=== PATIENT | male | born 1965 | race Caucasian/White ===

== ENCOUNTER → 2022-07-26 | Outpatient (CLI) | payer OTHER, SELFPAY ==
[2022-07-26 14:44] LABS: Hemoglobin A1c 5.4 % (3.8-5.6)
== END | disposition home or self-care (01) ==
LOC: MFPLAB 13:29
PROVIDERS: PCP Family Medicine; Referring Provider Family Medicine; Visit Provider Family Medicine
DX: R73.01 Impaired fasting glucose (principal)
CPT/HCPCS: 83036; 84153; G0103

== ENCOUNTER → 2023-07-25 | Outpatient (CLI) | payer OTHER, SELFPAY | END | disposition home or self-care (01) | PROVIDERS: PCP Family Medicine; Visit Provider Family Medicine | DX: Z12.5 Encounter for screening for malignant neoplasm of prostate (principal) | CPT/HCPCS: 36415 ==

== ENCOUNTER → 2023-07-31 | Outpatient (CLI) | payer OTHER, SELFPAY ==
--- NOTE | 2023-07-31 14:33 | RAD_ITS ---
INDICATION: COUGH EXAMINATION/TECHNIQUE: X-RAY - XR Chest 2 Views COMPARISON: None. FINDINGS: LINES/DEVICES: None. LUNGS: No consolidation or evidence of an effusion. No evidence of edema or a pneumothorax. MEDIASTINUM AND CARDIOVASCULAR STRUCTURES: Cardiac silhouette is normal in size and contour. Mediastinum is unremarkable. BONES AND SOFT TISSUES: No acute abnormality. RAD/Chest PA and Lateral IMPRESSION: No evidence of cardiopulmonary disease. Electronically Signed: Sven Angel DO at 23:14 EDT ,
== END | disposition home or self-care (01) ==
LOC: MTRAD 14:32
PROVIDERS: PCP Family Medicine; Visit Provider Family Medicine
DX: R05.9 Cough, unspecified (principal)
CPT/HCPCS: 71046

== ENCOUNTER → 2023-12-04 | Outpatient (CLI) | payer OTHER, SELFPAY ==
[2023-12-04 17:49] LABS: Absolute Lymphocyte Count 1.76 X10^3/uL (0.83-4.51); Absolute Neutrophil Count 2.9 X10^3/uL (2.0-7.7); Basophil# 0.07 X10^3/uL; Basophil% 1.2 % (0-1); Eosinophil# 0.49 X10^3/uL; Eosinophils% 8.4 % (0-5); Hemoglobin 15.5 g/dL (13.0-16.5); Lymphocyte # 1.76 X10^3/ul (0.83-4.51); Mean Corpuscular Hgb 28.8 pg (27.0-32.0); Mean Corpuscular Volume 87.4 fL (80-94); Mean Platelet Vol. 9.3 fl (6.2-12.0); Monocyte# 0.61 X10^3/uL; Monocyte% 10.4 % (0-10); NRBC Flagged by Analyzer 0 % (0-5); Neutrophil # 2.92 X10^3/uL (2.7-7.7); Neutrophil % 49.8 % (47-70); Platelet Count 207 K/mm3 (150-450); RBC Distribution Width CV 13.2 % (11.6-14.6); RBC Distribution Width SD 42.4 fl (35.1-43.9); Red Blood Count 5.38 M/mm3 (4.6-6.2); White Blood Count 5.9 K/mm3 (4.4-11.0)
[2023-12-04 18:35] LABS: ALB/GLOB Ratio 1.1 RATIO (0.9-2.4); AST(SGOT) 19 U/L (15-37); Alanine Aminotransfer ALT/SGPT 28 U/L (16-61); Albumin, Serum 3.8 g/dL (3.2-5.0); Alkaline Phosphatase 63 U/L (45-117); Anion Gap 4 (5-15); BUN 23 mg/dL (7-18); BUN/Creat Ratio 23.3 RATIO (10-20); CRP 3.37 mg/L (0.0-3.0); Calcium,Total 9.1 mg/dL (8.5-10.1); Chloride 106 mmol/L (98-107); Creatinine, Serum 0.99 mg/dL (0.70-1.30); EST Glomerular Filtration Rate 82 mL/min (>60); Est Glom Filt Rate - Afr Amer 100 mL/min (>60); Globulin 3.4 g/dL (2.2-4.2); Glucose 93 mg/dL (74-106); Lipase 37 U/L (13-75); Protein, Total 7.2 g/dL (6.4-8.2); Sodium Level 138 mmol/L (136-145)
== END | disposition home or self-care (01) ==
LOC: MFPLAB 16:27
PROVIDERS: PCP Family Medicine; Visit Provider Family Medicine
DX: K21.9 Gastro-esophageal reflux disease without esophagitis (principal)
CPT/HCPCS: 36415; 80053; 83690; 85025; 86140

== ENCOUNTER → 2023-12-05 | Outpatient (CLI) | payer OTHER, SELFPAY ==
[2023-12-07 15:07] LABS: H. PYLORI STOOL AG Negative (Negative)
== END | disposition home or self-care (01) ==
PROVIDERS: PCP Family Medicine; Referring Provider Family Medicine; Visit Provider Family Medicine
DX: K21.9 Gastro-esophageal reflux disease without esophagitis (principal)
CPT/HCPCS: 87338

== ENCOUNTER → 2024-01-07 | Outpatient (CLI) | payer OTHER, SELFPAY ==
--- NOTE | 2024-01-07 16:36 | CT_ITS ---
EXAM: CT CHEST WITH INTRAVENOUS CONTRAST CLINICAL INDICATION: atypical chest pain: look for swelling TECHNIQUE: Helically acquired images were obtained of the chest with intravenous contrast. This CT exam was performed using one or more of the following dose reduction techniques: automated exposure control, adjustment of the mA and/or kV according to patient size, and/or use of iterative reconstruction technique. CONTRAST: IV 100mL Isovue-300 COMPARISON: No relevant prior studies available. FINDINGS: LUNGS AND PLEURAL SPACES: Unremarkable. No mass. No consolidation or edema. No pleural effusion or thickening. No pneumothorax. HEART: Unremarkable. Heart size is normal. No pericardial effusion. MEDIASTINUM: Unremarkable. No mediastinal or hilar adenopathy. Esophagus is unremarkable. No hiatal hernia. THYROID: Unremarkable. No thyroid lesions. BONES/JOINTS: Unremarkable. No suspicious lytic or blastic abnormality. VASCULATURE: Unremarkable. Thoracic aorta is non-dilated. No thoracic aortic dissection. No obvious central pulmonary embolism although this study was not performed with the pulmonary embolism protocol. CT/Chest WITH Contrast IMPRESSION: Negative CT chest with intravenous contrast. Electronically Signed: Agustín Bowser MD at 17:40 EST ,
== END | disposition home or self-care (01) ==
LOC: CT 16:34
PROVIDERS: PCP Family Medicine; Referring Provider Family Medicine; Visit Provider Family Medicine
DX: R07.89 Other chest pain (principal)
CPT/HCPCS: 71260; Q9967

== ENCOUNTER 2024-02-17 16:18 | Outpatient (CLI) | payer OTHER, SELFPAY ==
[2024-02-17] VITALS (7 sets, daily range): BP systolic 101–142; BP diastolic 71–85; PULSE 67–71; RESP 16–66; TEMP 36.2–36.6; O2SAT 96–100; BMI 28.7
[2024-02-17] MEDS: Lactated Ringers 1,000 ML 15 ML IV (14:48)
--- NOTE | 2024-02-17 15:20 | PCM.HP.STD ---
[facility] - General General Date of Admission: 02/17/24 Date of Service: 02/17/24 Chief Complaint: Abdominal pain HPI Narrative GIANNI HOLLIDAY, is a 58 M who presents today for evaluation abdominal pain. He has been having trouble with midepigastric pain, radiating in a bandlike region around his back. He denies any chest pain or shortness of breath. He was placed on a PPI for possible atypical gastroesophageal reflux disease. That did not help. He comes in today for endoscopy. [facility] Medical History (Updated 02/17/24 @ 15:[address] 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 (omeprazole)) 20 mg PO DAILY 02/16/24 [History Last Taken 02/17/24 06:00] Allergy/AdvReac Type Severity Reaction Status Date / Time No Known Allergies Allergy Verified 02/17/24 14:38 Surgical History (Updated 02/16/24 @ 09:40 by Brianna Maxwell) Hx of colonoscopy Hx of left cataract extraction Hx of right cataract extraction Hx of vasectomy Social History Smoking Status: Never smoker alcohol intake: current alcohol intake frequency: 0-2 drinks per day Alcohol type: wine ROS Review of Systems ROS Unobtainable: other Constitutional Constitutional: Denies fatigue, fever(s), poor appetite, weight gain or weight loss ENT HEENT: Denies mouth lesions Cardiovascular Cardiovascular: Denies abdominal bloating, abdominal edema or abdominal pain Respiratory/Chest Respiratory/Chest: Denies change in mental status, change in phlegm color, chest congestion or chest tightness Gastrointestinal Gastrointestinal: Denies belching, bloating, change in bowel habits, change in stool character, chewing difficulty, coffee ground emesis, constipation, cramping, diarrhea, dyspepsia, dysphagia, early satiety, excessive flatus, fecal incontinence, heartburn, hematemesis, hematochezia, hemorrhoids, loose stools, melena, nausea, odynophagia, rectal bleeding, tenesmus, vomiting or weight changes Genitourinary Genitourinary: Denies abdominal discomfort, burning urination or itching Musculoskeletal Musculoskeletal: Reports as per HPI; Denies muscle weakness or myalgias Integumentary Integumentary: Denies jaundice Neurologic Neurologic: Denies lack of coordination or weakness Psychiatric Psychiatric: Denies confusion, depression, memory loss, mood swings, paranoia or suicidal ideation Endocrine Endocrinology: Denies systems reviewed and no addt'l complaints, except as documented Hematologic/Lymphatic Hematologic/Lymphatic: Denies anemia, easy bleeding, easy bruising or lymphadenopathy Allergic/Immunologic Allergic/Immunologic: Denies systems reviewed and no addt'l complaints, except as documented Vital Signs Vital Signs Vital Signs: 02/17/24 14:39 02/17/24 14:39 Temperature 98 F Temperature Source Temporal Pulse Rate 68 Respiratory Rate 16 Respiratory Pattern Normal Blood Pressure 142/85 H Blood Pressure Mean 104 Blood Pressure Source Monitor Blood Pressure Position Semi-Fowlers Blood Pressure Location Right Arm Pulse Ox 100 Oxygen Delivery Method Room Air Weight Weight: 212 lb Body Mass Index (BMI) 28.7 Physical Exam Const alert General Appearance: cooperative Orientation / Consciousness: oriented to person HEENT hearing grossly normal bilaterally Head and Scalp: normal to inspection Face and Sinus: face symmetric Nose: external nose normal Mouth: oral and palatal mucosa normal Eyes conjunctivae normal General Eye: normal appearance of both eyes Neck full ROM General: normal visual inspection Lymph Lymphatic: no lymphadenopathy noted Chest inspection of chest normal and palpation of chest normal Chest: symmetrical chest wall rise Resp normal respiratory effort Effort and Inspection: able to speak in complete sentences Cardio regular rate GI non-distended Percussion: normal to percussion Rectal Exam: deferred Neuro Speech: speech normal Gait (Neuro): normal gait Assessment & Plan Assessment/Plan (1) GERD (gastroesophageal reflux disease): (2) Abdominal pain: PLAN: Plan 58-year-old gentleman with no specific past medical history and and a family history of abdominal malignancy in his father and possible peptic ulcer disease resulting in surgery in his mother. He comes in with worsening abdominal pain and intermittent reflux disease refractory to medical therapy. We will undergo evaluation of his upper GI tract. He was explained alternatives, risk, benefits include not withstanding bleeding, infection, sepsis, perforation, need for emergent surgery and . He will have an ASA of 2.
--- NOTE | 2024-02-17 15:30 | IMM_PTH ---
PATIENT: GIANNI HOLLIDAY LOC: EN U#:[id number] AGE/SX: 58/M ROOM: RE02/17/[address]: Dr. Alireza Nation DO : 1965 BED: DIS: 02/17/2024 SPEC #: [id number] RECD: 02/18/24 13:09 STATUS: HUSAM REWhitney #: [id number] ANA: 02/17/24 15:[address]: Alireza Nation DEPT: IMMUNOHISTOCHEMISTRY RECD BY: Kamaljit Aviles ENTERED: 02/18/24 13:10 SP TYPE: IMMUNO OTHR DR: Dr. Swapnil Leon MD Tissues: A - Stomach, NOS Procedures: H Pylori (initial) PHYSICIAN & INSTITUTION [place] [id number] SPECIMEN INFORMATION: Tissue Source: Gastric body Clinical Info: GERD, Abdominal pain Specimen Number: [id number] CPT code: 08298 METHODOLOGY: Deparaffinized sections of prefer/formalin-fixed tissue or PAP/DQ stained slides are incubated with monoclonal/polyclonal antibodies/oligonucleotide probes. Localization is made via biotin free immunoperoxidase method. Appropriate controls are performed and reacted as expected. Results on target cell population are indicated in the following table: RESULTS: ANTIBODY / CLONE RESULT Block A H Pylori (polyclonal) negative These tests were developed and their performance characteristics determined by [facility]. They may not have been cleared or approved by the U.S. Food and Drug Administration. The FDA has determined that such clearance or approval is not necessary. The above immunohistochemical/dualISH markers are ordered and reviewed by the Pathologist. INTERPRETATION: A. Gastric body, biopsy: Negative for Helicobacter pylori organisms. DELMER/ 02/19/24
--- NOTE | 2024-02-17 15:30 | EGD_PTH ---
PATIENT: GIANNI HOLLIDAY LOC: EN U#:[id number] AGE/SX: 58/M ROOM: RE02/17/[address]: Dr. Alireza Nation DO : 1965 BED: DIS: 02/17/2024 SPEC #: [id number] RECD: 02/18/24 13:40 STATUS: HUSAM REWhitney #: [id number] ANA: 02/17/24 15:[address]: Alireza Nation DEPT: SURGICAL PATHOLOGY RECD BY: Kamaljit Aviles ENTERED: 02/18/24 13:40 SP TYPE: EGD BIOPSY AD DR: Dr. Swapnil Leon MD Tissues: A - Stomach, NOS B - Esophagus, NOS Procedures: Special Stain Group II Surgery Specimen Level IV Alcian Blue/PAS (control) HEADER OPERATION: EGD with biopsy PRE-OP DIAGNOSIS: GERD, Abdominal pain TISSUE SUBMITTED: A- Gastric body biopsy, B- Distal esophagus biopsy MICROSCOPIC DIAGNOSIS A. Gastric body, biopsy: Mild gastritis. See microscopic description and comment. B. Distal esophagus, biopsy: Fragments of gastroesophageal mucosa with moderate chronic inflammation. Intestinal metaplasia (goblet cell metaplasia) not identified. See comment. DELMER/ 02/19/24 COMMENT A. The results of immunohistochemistry for Helicobacter pylori will be reported separately ([id number]). B. Alcian blue/PAS stain with matched control is used in the evaluation of the specimen. MICROSCOPIC DESCRIPTION Slides are reviewed. A. The specimen shows fragments of gastric mucosa with chronic inflammatory cell infiltrates in the lamina propria consisting of lymphocytes and plasma cells, consistent with mild chronic gastritis. GROSS DESCRIPTION A. Received in fixative is one container labeled with the patient's name and designated Gastric body biopsy. The specimen consists of multiple irregular fragments of light cerna soft tissue that in aggregate measure 1.0 x 0.3 x 0.1 cm. The specimen is totally submitted in one cassette. B. Received in fixative is one container labeled with the patient's name and designated Distal esophagus. The specimen consists of multiple irregular fragments of light cerna soft tissue that in aggregate measure 1.0 x 0.3 x 0.1 cm. The specimen is totally submitted in one cassette. AM/mr 02/18/24 TC:3 CPT:99804d8, 30249
--- NOTE | 2024-02-17 15:58 | OP.EGD_ITS ---
Patient Name: Bradley Ruiz Procedure Date: 02/17/2024 3:15 PM Date of : 1965 Age: 58 Procedure: Upper GI endoscopy Indications: Epigastric abdominal pain, Functional Dyspepsia, Failure to respond to medical treatment Providers: Alireza Nation DO Referring MD: Alireza Nation DO Medicines: Monitored Anesthesia Care Patient Profile: This is a 58 year old male. Refer to note in patient chart for documentation of history and physical. Patient has symptoms of acute epigastric abdominal pain and acute dyspepsia. Complications: No immediate complications. Procedure: Pre-Anesthesia Assessment: - Prior to the procedure, a History and Physical was performed, and patient medications and allergies were reviewed. The patient is competent. The risks and benefits of the procedure and the sedation options and risks were discussed with the patient. All questions were answered and informed consent was obtained. Patient identification and proposed procedure were verified by the physician in the pre-procedure area. Mental Status Examination: alert and oriented. Airway Examination: normal oropharyngeal airway and neck mobility. CV Examination: normal. Prophylactic Antibiotics: The patient does not require prophylactic antibiotics. Prior Anticoagulants: The patient has taken no anticoagulant or antiplatelet agents. ASA Grade Assessment: II - A patient with mild systemic disease. After reviewing the risks and benefits, the patient was deemed in satisfactory condition to undergo the procedure. The anesthesia plan was to use monitored anesthesia care (MAC). Immediately prior to administration of medications, the patient was re-assessed for adequacy to receive sedatives. The heart rate, respiratory rate, oxygen saturations, blood pressure, adequacy of pulmonary ventilation, and response to care were monitored throughout the procedure. The physical status of the patient was re-assessed after the procedure. After obtaining informed consent, the endoscope was passed under direct vision. Throughout the procedure, the patient's blood pressure, pulse, and oxygen saturations were monitored continuously. The gastroscope was introduced through the mouth, and advanced to the second part of duodenum. The upper GI endoscopy was accomplished without difficulty. The patient tolerated the procedure well. Scope In: 3:27:29 PM Scope Out: 3:32:44 PM Total Procedure Duration Time 0 hours 5 minutes 15 seconds Findings: The Z-line was irregular and was found 39 cm from the incisors. Biopsies were taken with a cold forceps for histology. Verification of patient identification for the specimen was done. Estimated blood loss was minimal. Patchy mildly erythematous mucosa without bleeding was found in the gastric body. Biopsies were taken with a cold forceps for histology. Verification of patient identification for the specimen was done. Estimated blood loss was minimal. Biopsies were taken with a cold forceps for Helicobacter pylori testing. Verification of patient identification for the specimen was done. Estimated blood loss was minimal. The first portion of the duodenum was normal. Biopsies were taken with a cold forceps for histology. Verification of patient identification for the specimen was done. Estimated blood loss was minimal. Impression: - Z-line irregular, 39 cm from the incisors. Biopsied. - Erythematous mucosa in the gastric body. Biopsied. - Normal first portion of the duodenum. Biopsied. Recommendation: - Discharge patient to home. - Resume previous diet. - Continue present medications. - Await pathology results. Procedure Code(s): --- Professional --- 53625, Esophagogastroduodenoscopy, flexible, transoral; with biopsy, single or multiple CPT copyright 2021 [employer]. All rights reserved. The codes documented in this report are preliminary and upon finding fastener review may be revised to meet current compliance requirements. Alireza Nation DO 02/17/2024 3:58:24 PM This report has been signed electronically. Number of Addenda: 0 Note Initiated On: 02/17/2024 3:15 PM
--- NOTE | 2024-02-17 15:59 | OP.CCLET_ITS ---
02/17/2024 Swapnil Leon [address] [place] [address] Re : Upper GI endoscopy procedure for Bradley Ruiz Dear Dr. Leon This procedure was performed on Saturday, February 17, 2024. My impressions and recommendations are as follows: Impressions : - Z-line irregular, 39 cm from the incisors. Biopsied. - Erythematous mucosa in the gastric body. Biopsied. - Normal first portion of the duodenum. Biopsied. Recommendations : - Discharge patient to home. - Resume previous diet. - Continue present medications. - Await pathology results. My findings are described in the full procedure note, which is enclosed. If I can be of further assistance, please feel free to contact me at . Sincerely, Alireza Nation, 02/17/2024 3:58:24 PM This report has been signed electronically.
== END 2024-02-17 16:20 | disposition home or self-care (01) ==
LOC: EN 16:19 → AC 16:19 → EN 16:19
PROVIDERS: PCP Family Medicine; Referring Provider Family Medicine; Visit Provider Internal Medicine Gastroenterology
PROC: 0DJ08ZZ Inspection of Upper Intestinal Tract, Via Natural or Artificial Opening Endoscopic (ICD-10-PCS; CPT 43235; principal; 2024-02-17 15:25)
DX: R10.13 Epigastric pain (principal); Z98.41 Cataract extraction status, right eye; Z98.42 Cataract extraction status, left eye; Z98.52 Vasectomy status; K21.9 Gastro-esophageal reflux disease without esophagitis; Z80.0 Family history of malignant neoplasm of digestive organs; K22.89 Other specified disease of esophagus; K31.89 Other diseases of stomach and duodenum; K29.70 Gastritis, unspecified, without bleeding
CPT/HCPCS: 43239; 88305; 88313; 88342; J7120; J2405

== ENCOUNTER 2024-02-18 06:58 | Outpatient (CLI) | payer OTHER, SELFPAY ==
[2024-02-18 07:54] LABS: Erythrocyte Sedimentation Rate 6 mm/hr (0-20)
[2024-02-18 07:57] LABS: Absolute Lymphocyte Count 1.59 X10^3/uL (0.83-4.51); Absolute Neutrophil Count 2.9 X10^3/uL (2.0-7.7); Basophil# 0.06 X10^3/uL; Basophil% 1.1 % (0-1); Eosinophil# 0.34 X10^3/uL; Eosinophils% 6.3 % (0-5); Hematocrit 48.2 % (40-54); Hemoglobin 15.6 g/dL (13.0-16.5); Lymphocyte # 1.59 X10^3/ul (0.83-4.51); Lymphocyte % 29.5 % (19-41); Mean Corp Hgb Conc 32.4 g/dL (32-36); Mean Corpuscular Hgb 28.5 pg (27.0-32.0); Mean Corpuscular Volume 88.1 fL (80-94); Mean Platelet Vol. 9.2 fl (6.2-12.0); Monocyte% 9.3 % (0-10); NRBC Flagged by Analyzer 0 % (0-5); Neutrophil # 2.88 X10^3/uL (2.7-7.7); Neutrophil % 53.4 % (47-70); Platelet Count 230 K/mm3 (150-450); RBC Distribution Width CV 13.1 % (11.6-14.6); RBC Distribution Width SD 42.4 fl (35.1-43.9); Red Blood Count 5.47 M/mm3 (4.6-6.2); White Blood Count 5.4 K/mm3 (4.4-11.0)
[2024-02-18 08:13] LABS: ALB/GLOB Ratio 1.1 RATIO (0.9-2.4); AST(SGOT) 15 U/L (15-37); Alanine Aminotransfer ALT/SGPT 23 U/L (16-61); Albumin, Serum 3.6 g/dL (3.2-5.0); Alkaline Phosphatase 65 U/L (45-117); Amylase 56 U/L (25-115); Anion Gap 4 (5-15); BUN 15 mg/dL (7-18); BUN/Creat Ratio 14.2 RATIO (10-20); CPK Total, Creatine Kinase 86 U/L (39-308); CRP < 2.90 mg/L (0.0-3.0); Calcium,Total 8.9 mg/dL (8.5-10.1); Chloride 110 mmol/L (98-107); Creatinine, Serum 1.06 mg/dL (0.70-1.30); EST Glomerular Filtration Rate 76 mL/min (>60); Est Glom Filt Rate - Afr Amer 92 mL/min (>60); Globulin 3.4 g/dL (2.2-4.2); Glucose 120 mg/dL (74-106); LDH 178 U/L (87-241); Lipase 42 U/L (13-75); Potassium 4.2 mmol/L (3.5-5.1); Sodium Level 140 mmol/L (136-145)
[2024-02-20 15:08] LABS: Aldolase 4.7 U/L (3.3-10.3); Alpha-1-Globulins 0.2 g/dL (0.0-0.4); Alpha-2-Globulins 0.6 g/dL (0.4-1.0); Carbohydrate AG 19-9 5 U/mL (0-35); Carcinoembryonic Antigen 1.4 ng/mL (0.0-4.7); Deamidated Gliadin IgA 7 units (0-19); Deamidated Gliadin IgG 3 units (0-19); Endomysial Antibody IgA Negative (Negative); Gamma Globulin 0.8 g/dL (0.4-1.8); Gastrin, Serum 13 pg/mL (0-115); Immunoglobulin A 288 mg/dL (90-386); Immunoglobulin G 964 mg/dL (603-1613); Immunoglobulin M 83 mg/dL (20-172); PROEL- TOTAL PROTEIN 6.4 g/dL (6.0-8.5); t-Transglutaminase IgA <2 U/mL (0-3)
== END 2024-02-18 23:59 | disposition home or self-care (01) ==
PROVIDERS: PCP Family Medicine; Visit Provider Internal Medicine Gastroenterology
DX: R10.9 Unspecified abdominal pain (principal); K21.9 Gastro-esophageal reflux disease without esophagitis
CPT/HCPCS: 36415; 80053; 82085; 82150; 82378; 82550; 82784; 82941; 83516; 83615; 83690; 84165; 85025; 85652; 86140; 86255; 86301; 86334

== ENCOUNTER → 2024-03-10 | Outpatient (CLI) | payer OTHER, SELFPAY ==
--- NOTE | 2024-03-10 07:14 | US_ITS ---
STUDY: ABDOMINAL ULTRASOUND REASON FOR EXAM: Male, 58 years old. Abdominal pain TECHNIQUE: Transabdominal ultrasound was performed with real-time and static morales scale imaging. TECHNICAL QUALITY: Adequate. COMPARISON: None. FINDINGS: Liver: The liver measures 15.9 cm. There is normal echogenicity of the liver. The bile ducts are within normal limits. There is hepatic color flow. The direction of portal flow is hepatopetal. There is no demonstrated mass lesion. Gallbladder: Normal distended gallbladder. The gallbladder wall measures 1.9 mm. There is a negative sonographic Laboy''s sign. There is no pericholecystic fluid. There are no gallstones. Common Bile Duct (C.B.D.): The common bile duct measures 4.1 mm. Pancreas: Limited visualization of pancreas due to overlying bowel gas although no obvious mass lesion is seen. Spleen: Normal size of the spleen. The spleen measures 12.1 cm x 4.8 cm x 5.1 cm. Right Kidney: Normal size of the right kidney. The right kidney measures 10.7 cm x 5.9 cm x 5.6 cm. Normal renal cortex. The right cortex measures 1.5 cm. There is no demonstrated renal mass or cyst. There is no right hydronephrosis. Left Kidney: Normal size of the left kidney. The left kidney measures 12.4 cm x 5.5 cm x 6.6 cm. Normal renal cortex. The left cortex measures 1.5 cm. There is no demonstrated renal mass or cyst. There is no left hydronephrosis. Aorta: Unremarkable I.V.C.: The IVC is patent. There is no ascites. US/Abdomen Complete IMPRESSION: Limited evaluation of the pancreas. The remainder of the examination is unremarkable. Electronically Signed: Eder Smith MD at 14:39 EDT ,
== END | disposition home or self-care (01) ==
PROVIDERS: PCP Family Medicine; Referring Provider Internal Medicine Gastroenterology; Visit Provider Internal Medicine Gastroenterology
DX: R10.9 Unspecified abdominal pain (principal)
CPT/HCPCS: 76700

== ENCOUNTER → 2024-06-29 | Outpatient (CLI) | payer OTHER, SELFPAY ==
[2024-06-29 11:36] LABS: PSA,Total - Annual Screen 0.27 ng/mL (0.00-4.00)
== END | disposition home or self-care (01) ==
LOC: MFPLAB 10:46
PROVIDERS: PCP Family Medicine; Visit Provider Family Medicine
DX: Z12.5 Encounter for screening for malignant neoplasm of prostate (principal)
CPT/HCPCS: 84153; G0103

== ENCOUNTER → 2024-08-11 | Outpatient (CLI) | payer OTHER, SELFPAY ==
--- NOTE | 2024-08-11 13:00 | CT_ITS ---
STUDY: CT CHEST WITHOUT CONTRAST REASON FOR EXAM: Male, 58 years old. CP OVER READ ONLY RADIATION DOSAGE (If Supplied By Facility): CTDIvol = ( 12.19 ) mGy, DLP = ( 219.42 ) mGycm TECHNIQUE: Transaxial imaging was performed without the administration of intravenous contrast material. Individualized dose optimization techniques were used for this CT. COMPARISON: Comparison is made with prior CT scan of the chest dated December 30, 2023. FINDINGS: CHEST The lungs are normal. There is no demonstrated pleural abnormality. There are calcifications of the coronary arteries. Calcific plaques seen in the LAD, circumflex and origin of the right coronary artery. Normal mediastinum. Normal hilar regions. Normal unenhanced pulmonary arteries. There is atherosclerotic calcification of the aortic arch. Normal osseous structures. There is no demonstrated abnormality of the visualized upper abdomen. CT/Limited Chest CT Cardiac Only IMPRESSION: Coronary artery calcification as described. Electronically Signed: Eder Smith MD at 13:49 EDT ,
--- NOTE | 2024-08-11 16:59 | CA.SCORE ---
Calcium Scoring Date of Study:: 08/11/24 Indications Indications: Family History /Chest pain Coronary Calcium Scoring: High-resolution Computed Tomographic imaging of the chest was performed on [ 08/11/24], with particular attention paid to the coronary arteries. Images from the examination were analyzed for the presence and extent of coronary artery calcification , using coronary calcium quantification software. The patient tolerated the procedure well and there were no complications. The results of the coronary calcification analysis are provided below. Findings Coronary Artery Left Main (LM): 91 Left Anterior Descending (LAD): 128 Left Circumflex (LCX): 189 Right Coronary Artery (RCA): 432 Total Agatston Score: 840 Percentile Ranking: Greater than 90% Calcium Scoring Interpretation: Different methods to categorize the overall amount of coronary plaque. Overall amount CAC SIS Visual of coronary plaque P1 Mild -100 <2 1-2 vessels with mild amount of plaque P2 Moderate 101-300 3-4 1-2 vessels with moderate amount, 3 vessels with mild amount of plaque P3 Severe 301-999 5-7 3 vessels with moderate amount, 1 vessel with severe amount of plaque P4 Extensive >1000 >8 2-3 vessels with severe amount of plaque Calcium Score: Severe: 3 vessels w/moderate amount, 1 vessel w/severe amt of plaque Conclusion: 3 vessels with moderate amount of plaque. 1 vessel with severe plaque.
== END | disposition home or self-care (01) ==
PROVIDERS: PCP Family Medicine; Referring Provider Family Medicine; Visit Provider Family Medicine
DX: R07.89 Other chest pain (principal); Z71.89 Other specified counseling
CPT/HCPCS: 75571; 76380

== ENCOUNTER → 2024-08-20 | Outpatient (CLI) | payer OTHER, SELFPAY ==
--- NOTE | 2024-08-20 08:21 | ECHOD_ITS ---
Version 2 Reason For Study: ASHD Procedure This was a 2D Doppler, Color Flow transthoracic echocardiogram. Exam performed in department. Left Ventricle Normal LV size. Left ventricular systolic function is normal. The left ventricular ejection fraction is 60 %. Stage 1 diastolic dysfunction. No regional wall motion abnormalities noted. Right Ventricle Normal RV size. Normal systolic function. Atria Normal left atrium. Normal right atrium. Mitral Valve Normal mitral valve. There is mild mitral annular calcification. Trivial eccentric mitral valve insufficiency. Tricuspid Valve Normal tricuspid valve. Aortic Valve Trisinus/trileaflet aortic valve. Mild focal aortic valve calcification. Trivial aortic valve insufficiency. Great Vessels Mildly calcified aortic root. The pulmonary artery is normal size. Inferior vena cava collapse with respiration. Pericardium/Pleural No pericardial effusion. MMode/2D Measurements & Calculations LVIDd: 4.2 cm IVSd: 0.96 cm Ao root diam: 3.4 cm LVIDs: 2.6 cm LVPWd: 1.1 cm RVDd: 3.5 cm FS: 36.5 % LAV(MOD-bp): 47.3 ml LVAd ap4: 28.3 cm2 SV(MOD-sp4): 50.8 ml LAV(MOD-bp) Indexed: 21.7 ml/m2 LVLd ap4: 8.3 cm LAV(MOD-sp2): 46.4 ml EDV(MOD-sp4): 82.3 ml LAV(MOD-sp4): 47.0 ml EDV(sp4-el): 81.8 ml LVAs ap4: 16.2 cm2 LVLs ap4: 7.2 cm ESV(MOD-sp4): 31.5 ml ESV(sp4-el): 30.8 ml EF(MOD-sp4): 61.7 % EF(sp4-el): 62.4 % SV(sp4-el): 51.0 ml LA dimension(2D): 3.3 cm LA A4 area: 17.7 cm2 RA A4 area: 13.6 cm2 TAPSE: 1.8 cm Time Measurements MV dec time: 0.21 sec Doppler Measurements & Calculations MV E max sathya: 64.1 cm/sec Lat Peak E' Sathya: 8.2 cm/sec Med Peak E' Sathya: 7.8 cm/sec MV A max sathya: 76.7 cm/sec E/E' lat: 7.9 E/E' med: 8.2 MV E/A: 0.84 Ao V2 max: 147.8 cm/sec AI max sathya: 380.9 cm/sec MV dec slope: 306.9 cm/sec2 Ao max P.7 mmHg AI max P.0 mmHg Ao V2 mean: 96.5 cm/sec Ao mean P.4 mmHg AI dec slope: 244.5 cm/sec2 Ao V2 VTI: 28.7 cm AI P1/2t: 456.3 msec AV (velocity ratio): 0.82 LV V1 max: 120.6 cm/sec PA V2 max: 118.7 cm/sec LV V1 max P.8 mmHg LV V1 mean P.0 mmHg LV V1 mean: 81.5 cm/sec LV V1 VTI: 23.6 cm ECHO/Echo Complete Interpretation Summary Normal LV size. Left ventricular systolic function is normal. The left ventricular ejection fraction is 60 %. Stage 1 diastolic dysfunction. Mild focal aortic valve calcification. Trivial aortic valve insufficiency. Ordering Physician: Yrn Navarro Referring Physician: Swapnil Leon MD Performed By: Arcelia Beckwith RDCS
--- NOTE | 2024-08-20 13:03 | STRESSREP_ITS ---
Stress Test Report Exercise myocardial perfusion stress test. 58-year-old man with a history of abnormal calcium score Stress protocol: Resting EKG demonstrates normal sinus rhythm with a rate of 61 bpm resting blood pressure is 128/88 mmHg. The patient exercised according to the regular Reed protocol for a total duration of 10 minutes and 30 seconds attaining a maximum heart rate of 155 bpm which was 96% of maximum predicted heart rate; the maximum workload was 13.4 metabolic equivalents. At rest there were no ST or T wave changes noted to suggest ischemia and at peak exercise upsloping ST changes only were noted which did not meet the criteria for ischemia. No clinical angina was noted the test was terminated due to the target heart rate being a chieved/fatigue. The peak blood pressure was 190/62 mmHg. Rate-pressure product was 28,100. Myocardial perfusion protocol. 14.3 mCi of technetium 99m sestamibi was injected at rest. The patient ex ercised according to regular Reed protocol for total duration of 10-1/2 minutes and at peak exercise 44.1 mCi of technetium 99m sestamibi was injected stress images were obtained stress and rest images were reconstructed in comparing the short axis vertical long and horizontal long axis. Gated images were also obtained. Perfusion SPECT analysis: Review of the stress images demonstrate normal uptake of tracer noted in all areas of the myocardium. The resting images similarly demonstrate normal uptake of tracer noted in all areas of the myocardium. No areas of reversibility are noted to suggest ischemia no previous infarct was noted. Gated SPECT analysis: The gated ejection fraction is 72%. Conclusion: Normal exercise myocardial perfusion stress test at a high workload Preserved ejection fraction. Good functional aerobic capacity
== END | disposition home or self-care (01) ==
LOC: CVS 08:20
PROVIDERS: PCP Family Medicine; Referring Provider Internal Medicine Cardiovascular Disease; Visit Provider Internal Medicine Cardiovascular Disease
DX: I25.10 Atherosclerotic heart disease of native coronary artery without angina pectoris (principal)
CPT/HCPCS: 78452; 93017; 93306; A9500

== ENCOUNTER 2025-07-29 09:13 | Day surgery (SDC) | payer OTHER, SELFPAY ==
--- NOTE | 2025-07-28 10:20 | PAT.ANE_ITS ---
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 When Was Last Pacemaker Check QUESTION #4 FULL TEXT: You/Your Family Experience fever (hyperthermia) with Anesthesia Last Oral Intake Last Oral intake: Last Oral Intake NPO since Meds taken in AM with sips of water? Meds patient instructed to take am of surgery PONV PONV - patent examiner: PONV - patent examiner Female No 07/28/25 08:52 HX of Motion Sickness No 07/28/25 08:52 HX of N/V After Surgery No 07/28/25 08:52 Non-Smoker Yes 07/28/25 08:52 Duration of Surgery greater No 07/28/25 08:52 than 60 minutes Number of Risk Factors 1 07/28/25 08:52 PONV Score Low Risk 07/28/25 08:52 Height & Weight Height & Weight: Anesthesia: Height & Weight Height 6 ft 08/18/24 11:52 Respiratory Assessment Respiratory Assessment - patent examiner: Respiratory Tract Infection Hx - patent examiner Hx Respiratory Tract Infection No 07/28/25 08:52 STOP Sleep Apnea STOP Sleep Apnea - patent examiner: STOP Sleep Apnea - patent examiner Hx Hypertension No 07/28/25 08:52 Hx Sleep Apnea No 07/28/25 08:52 CPAP BIPAP Do you snore loudly (louder No 07/28/25 08:52 than talking or can be heard Do you often feel tired/ No 07/28/25 08:52 fatigued/ sleepy during daytime? Has anyone observed you stop No 07/28/25 08:52 breathing during sleep? STOP Results Negative 07/28/25 08:52 QUESTION #5 FULL TEXT : Do you snore loudly (louder than talking or can be heard through closed doors)? 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 Specify any problems Hx of Preganancy in last 3 N/A 07/28/25 08:52 Months Nurse Filling Out Transfusion DSCHRIBER 07/28/25 08:52 & Questions: Date: 07/28/25 07/28/25 08:52 Time: 08:53 07/28/25 08:52 Patient unable to answer at this time (ie. confused, unrespo /Reproduction History /Reproductive History - patent examiner: /Reproductive Hx- patent examiner Hx Now No 07/28/25 08:52 Gestational Age (in weeks): EDC: Hx Hx Para Hx Section SAB No 07/28/25 08:52 [facility] Medical History (Updated 07/28/25 @ 08:59 by Brianna Maxwell) Wears glasses High cholesterol History of echocardiogram History of stress test Cardiology follow-up encounter CAD (coronary artery disease) Alcohol use Low ferritin level GERD (gastroesophageal reflux disease) Home Medications ?Medication ?Instructions ?Recorded ?Last Taken ?Type multivitamin with minerals-folic 1 tab PO DAILY 07/24/25 History acid 0.4 mg tablet atorvastatin 40 mg tablet 40 mg PO QDAY 08/18/24 Unkno wn History coenzyme Q10 100 mg capsule 100 mg PO QDAY 06/22/25 History omega 7-nsk-aaj-fish oil 1,200 mg 1 cap PO DAILY 07/2807/24/25 History (144 mg-216 mg) capsule (Fish Oil) vitamin K2 100 mcg capsule 100 mcg PO DAILY 07/28/25 0 07/24/25 History Allergy/AdvReac Type Severity Reaction Status Date / Time No Known Allergies Allergy Verified 07/28/25 08:50 Family History Grandfather COPD (chronic obstructive pulmonary disease) Father Cancer Surgical History (Updated 07/28/25 @ 08:59 by Brianna Maxwell) Hx of vasectomy Hx of colonoscopy Hx of right cataract extraction Hx of left cataract extraction Social History Smoking Status: Never smoker alcohol intake: current alcohol intake frequency: 0-2 drinks per day Alcohol type: wine Audit: Pertinent Findings Pertinent Findings EKG Perinent findings: 08/18/2024. Sinus rhythm. Stress test pertinent findings: 08/20/2024. EF of 72%. No areas of reversibility noted to suggest ischemia. No previous infarct. Echo (EF%) pertinent findings: 08/20/2024. EF is 60%. No aortic stenosis noted. Consult pertinent findings: 08/18/2024. Dr. Navarro. 1. Elevated coronary artery calcium score-patient is in the 90 percentile. Asymptomatic. Lipid levels are mildly elevated and his overall risk for 10 years is approximately 5.4%. Patient is to continue high intensity statin. Will get stress test and echocardiogram to assess cardiac function. (See above) Recommendation Anesthesia Recommendation Anesthesia recommendation: OPTIMIZED for anesthesia
[2025-07-29] VITALS (9 sets, daily range): BP systolic 102–125; BP diastolic 57–94; PULSE 57–80; RESP 14–18; TEMP 36.1–36.6; O2SAT 98–100; BMI 28.0
--- NOTE | 2025-07-29 09:39 | PCM.HP.STD ---
[facility] - General General Date of Admission: 07/29/25 Date of Service: 07/29/25 Chief Complaint: Screening colonoscopy HPI Narrative GIANNI HOLLIDAY, is a 59 M who presents for screening colonoscopy. He is not have any abdominal pain, cramping, chest pain or shortness of breath. Overall is in very good health. He only takes a statin on a daily basis for prescription medications. [facility] Medical History Wears glasses High cholesterol History of echocardiogram History of stress test Cardiology follow-up encounter CAD (coronary artery disease) Alcohol use Low ferritin level GERD (gastroesophageal reflux disease) Home Medications ?Medication ?Instructions ?Recorded ?Last Taken ?Type multivitamin with minerals-folic 1 tab PO DAILY 02/16/24 07/24/25 History acid 0.4 mg tablet atorvastatin 40 mg tablet 40 mg PO QDAY 08/18/24 07/27/25 History coenzyme Q10 100 mg capsule 100 mg PO QDAY 06/22/25 07/24/25 History omega 6-hub-yoy-fish oil 1,200 mg 1 cap PO DAILY 07/28/25 07/24/25 History (144 mg-216 mg) capsule (Fish Oil) vitamin K2 100 mcg capsule 100 mcg PO DAILY 07/28/25 07/24/25 History Allergy/AdvReac Type Severity Reaction Status Date / Time No Known Allergies Allergy Verified 07/29/25 09:32 Family History Grandfather COPD (chronic obstructive pulmonary disease) Father Cancer Surgical History Hx of vasectomy Hx of colonoscopy Hx of right cataract extraction Hx of left cataract extraction Social History Smoking Status: Never smoker alcohol intake: current alcohol intake frequency: 0-2 drinks per day Alcohol type: wine ROS Constitutional Constitutional: Denies fatigue, fever(s), poor appetite, weight gain or weight loss Gastrointestinal Gastrointestinal: Denies belching, bloating, change in bowel habits, change in stool character, chewing difficulty, coffee ground emesis, constipation, cramping, diarrhea, dyspepsia, dysphagia, early satiety, excessive flatus, fecal incontinence, heartburn, hematemesis, hematochezia, hemorrhoids, loose stools, melena, nausea, odynophagia, rectal bleeding, tenesmus, vomiting or weight changes Vital Signs Vital Signs Vital Signs: 07/29/25 09:33 07/29/25 09:33 Temperature 97.9 F Temperature Source Temporal Pulse Rate 80 Respiratory Rate 18 Respiratory Pattern Normal Blood Pressure 125/94 H Blood Pressure Mean 104 Blood Pressure Source Monitor Blood Pressure Position Semi-Fowlers Blood Pressure Location Right Arm Pulse Ox 100 Oxygen Delivery Method Room Air Weight Weight: 207 lb 3.752 oz Body Mass Index (BMI) 28.0 Physical Exam Const alert, oriented x3, no apparent distress and healthy appearing General Appearance: cooperative GI normal to inspection, nondistended, normoactive bowel sounds, soft to palpation, non-tender and non-distended Percussion: normal to percussion Rectal Exam: deferred Assessment & Plan Assessment/Plan (1) Encounter for screening colonoscopy: PLAN: He was explained alternatives, risk and benefits include not withstanding bleeding, infection, sepsis, perforation, need for more surgery . He will have an ASA of 3.
--- NOTE | 2025-07-29 09:40 | PCM.PRE.AN2 ---
ASA Classification* ASA Classification ASA Classification: 2 Assessment & Plan Anesthesia* Anesthesia Assessment Anesthesia Assessment: Discussed sedation and/or anesthesia options, risks, benefits, and alternatives with patient/parents/legal guardian/POA. Questions invited. The patient/parents/legal guardian/POA seems to understand and agrees to proceed with anesthesia plan. Reviewed the physical assessment, medical history, allergy history and patient home medications list prior to surgery/procedure/anesthetic and documented any changes. Performed airway and anesthesia risk assessments. Anesthesia Type Anesthesia Type: MAC Anesthesia Focused Assessment* Temperature: 97.9 F Pulse Rate: 80 Blood Pressure: 125/94 Respiratory Rate: 18 Pulse Ox: 100 Airway Assessment Mouth opens: >3 cm Mallampati Score: II Labs Anesthesia Preop lab: CBC WBC, (4.4-11.0) 5.7 K/mm3 06/25/24, 06:42 RBC, (4.6-6.2) 5.44 M/mm3 06/25/24, 06:42 Hgb, (13.0-16.5) 15.7 g/dL 06/25/24, 06:42 Hct, (40-54) 47.4 % 06/25/24, 06:42 Plt Count, (150-450) 233 K/mm3 06/25/24, 06:42 CHEMISTRY Potassium, (3.5-5.1) 4.1 mmol/L 06/25/24, 06:42 Sodium, (136-145) 139 mmol/L 06/25/24, 06:42 Phosphorus, (2.5-4.9) 3.1 mg/dL 06/25/24, 06:42 BUN, (7-18) 21 mg/dL H 06/25/24, 06:42 Creatinine, (0.70-1.30) 0.98 mg/dL 06/25/24, 06:42 Glucose, (74-106) 123 mg/dL H 06/25/24, 06:42 COAG Pre-Assessment Diagnosis/Proposed Procedure Planned Operative Procedure(s): CSCOPE OA Anesthesia History 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 When Was Last Pacemaker Check QUESTION #4 FULL TEXT: You/Your Family Experience fever (hyperthermia) with Anesthesia Last Oral Intake Last Oral intake: Last Oral Intake NPO since 08:00 07/29/25 09:33 Meds taken in AM with sips of No 07/29/25 09:33 water? Meds patient instructed to take am of surgery PONV PONV - intermediate accountant: PONV - intermediate accountant Female No 07/28/25 08:52 HX of Motion Sickness No 07/28/25 08:52 HX of N/V After Surgery No 07/28/25 08:52 Non-Smoker Yes 07/28/25 08:52 Duration of Surgery greater No 07/28/25 08:52 than 60 minutes Number of Risk Factors 1 07/28/25 08:52 PONV Score Low Risk 07/28/25 08:52 Height & Weight Height & Weight: Anesthesia: Height & Weight Height 6 ft 07/29/25 09:33 Weight: 94 kg 07/29/25 09:33 Body Mass Index (BMI) 28.0 07/29/25 09:33 Respiratory Assessment Respiratory Assessment - intermediate accountant: Respiratory Tract Infection Hx - intermediate accountant Hx Respiratory Tract Infection No 07/28/25 08:52 STOP Sleep Apnea STOP Sleep Apnea - intermediate accountant: STOP Sleep Apnea - intermediate accountant Hx Hypertension No 07/28/25 08:52 Hx Sleep Apnea No 07/28/25 08:52 CPAP BIPAP Do you snore loudly (louder No 07/28/25 08:52 than talking or can be heard Do you often feel tired/ No 07/28/25 08:52 fatigued/ sleepy during daytime? Has anyone observed you stop No 07/28/25 08:52 breathing during sleep? STOP Results Negative 07/28/25 08:52 QUESTION #5 FULL TEXT : Do you snore loudly (louder than talking or can be heard through closed doors)? 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 Specify any problems Hx of Preganancy in last 3 N/A 07/28/25 08:52 Months Nurse Filling Out Transfusion DSCHRIBER 07/28/25 08:52 & Questions: Date: 07/28/25 07/28/25 08:52 Time: 08:53 07/28/25 08:52 Patient unable to answer at this time (ie. confused, unrespo /Reproduction History /Reproductive History - intermediate accountant: /Reproductive Hx- intermediate accountant Hx Now No 07/28/25 08:52 Gestational Age (in weeks): EDC: Hx Hx Para Hx Section SAB No 07/28/25 08:52 Active Medications Active Medications: Current Medications Generic Name Dose Route Start Last Admin Trade Name Freq PRN Reason Stop Dose Admin Lactated Ringer's 1,000 mls @ 15 mls/hr 07/29/25 09:30 IV .Q48H MALICK PFSH Medical History Wears glasses High cholesterol History of echocardiogram History of stress test Cardiology follow-up encounter CAD (coronary artery disease) Alcohol use Low ferritin level GERD (gastroesophageal reflux disease) Home Medications ?Medication ?Instructions ?Recorded ?Last Taken ?Type multivitamin with minerals-folic 1 tab PO DAILY 02/16/24 07/24/25 History acid 0.4 mg tablet atorvastatin 40 mg tablet 40 mg PO QDAY 08/18/24 07/27/25 History coenzyme Q10 100 mg capsule 100 mg PO QDAY 06/22/25 07/24/25 History omega 1-mwq-stc-fish oil 1,200 mg 1 cap PO DAILY 07/28/25 07/24/25 History (144 mg-216 mg) capsule (Fish Oil) vitamin K2 100 mcg capsule 100 mcg PO DAILY 07/28/25 07/24/25 History Allergy/AdvReac Type Severity Reaction Status Date / Time No Known Allergies Allergy Verified 07/29/25 09:32 Family History Grandfather COPD (chronic obstructive pulmonary disease) Father Cancer Surgical History Hx of vasectomy Hx of colonoscopy Hx of right cataract extraction Hx of left cataract extraction Social History Smoking Status: Never smoker alcohol intake: current alcohol intake frequency: 0-2 drinks per day Alcohol type: wine Review of Systems (Anesthesia) ROS Narrative System reviewed and no additional complaints, except as documented.
[2025-07-29] MEDS: Lactated Ringers 1,000 ML 15 ML IV (09:42)
--- NOTE | 2025-07-29 10:15 | COLBX_PTH ---
PATIENT: GIANNI HOLLIDAY LOC: EN U#:[id number] AGE/SX: 59/M ROOM: RE07/29/[address]: Dr. Alireza Nation DO : 1965 BED: DIS: 07/29/2025 SPEC #: [id number] RECD: 07/29/25 12:45 STATUS: HUSAM REQ #: [id number] ANA: 07/29/25 10:[address]: Alireza Nation DEPT: SURGICAL PATHOLOGY RECD BY: Kamaljit Aviles ENTERED: 07/29/25 15:44 SP TYPE: COLON BX AD DR: Dr. Swapnil Leon MD Tissues: A - COLON BIOPSY Procedures: Surgery Specimen Level IV HEADER OPERATION: Colonoscopy, polypectomy PRE-OP DIAGNOSIS: Screening TISSUE SUBMITTED: A- Hepatic flexure polyp MICROSCOPIC DIAGNOSIS A. Hepatic flexure, polyp, biopsy: * Tubular adenoma. MICROSCOPIC DESCRIPTION Slides are reviewed. GROSS DESCRIPTION A. Received in fixative is one container labeled with the patient's name and designated Hepatic flexure polyp. The specimen consists of one irregular fragment of light cerna soft tissue that measures up to 1.2 cm. The specimen is totally submitted in one cassette. AR 07/29/2025 CPT:41340
--- NOTE | 2025-07-29 10:42 | OP.PROVAT_ITS ---
07/29/2025 Swapnil Leon [address] [place] [address] Re : Colonoscopy procedure for Bradley Ruiz Dear Dr. Leon This procedure was performed on Tuesday, July 29, 2025. My impressions and recommendations are as follows: Impressions : - One 5 mm polyp at the hepatic flexure, removed with a cold biopsy forceps. Resected and retrieved. - The examination was otherwise normal on direct and retroflexion views. Recommendations : - Discharge patient to home. - Resume previous diet. - Continue present medications. - Await pathology results. - Repeat colonoscopy in 5 years for surveillance. My findings are described in the full procedure note, which is enclosed. If I can be of further assistance, please feel free to contact me at . Sincerely, Alireza Nation, 07/29/2025 10:41:41 AM This report has been signed electronically.
--- NOTE | 2025-07-29 10:42 | OP.COLON_ITS ---
Patient Name: Bradley Ruiz Procedure Date: 07/29/2025 10:06 AM Date of : 1965 Age: 59 Procedure: Colonoscopy Indications: Screening for colorectal malignant neoplasm Providers: Alireza Nation DO Referring MD: Swapnil Leon Medicines: Monitored Anesthesia Care Patient Profile: This is a 59 year old male. Refer to note in patient chart for documentation of history and physical. Last Colonoscopy: more than 10 years ago. Complications: No immediate complications. Procedure: Pre-Anesthesia Assessment: - Prior to the procedure, a History and Physical was performed, and patient medications and allergies were reviewed. The patient is competent. The risks and benefits of the procedure and the sedation options and risks were discussed with the patient. All questions were answered and informed consent was obtained. Patient identification and proposed procedure were verified by the nurse in the pre-procedure area. Mental Status Examination: alert and oriented. Airway Examination: normal oropharyngeal airway and neck mobility. Respiratory Examination: clear to auscultation. CV Examination: normal. Prophylactic Antibiotics: The patient does not require prophylactic antibiotics. Prior Anticoagulants: The patient has taken no anticoagulant or antiplatelet agents. ASA Grade Assessment: II - A patient with mild systemic disease. After reviewing the risks and benefits, the patient was deemed in satisfactory condition to undergo the procedure. The anesthesia plan was to use monitored anesthesia care (MAC). Immediately prior to administration of medications, the patient was re-assessed for adequacy to receive sedatives. The heart rate, respiratory rate, oxygen saturations, blood pressure, adequacy of pulmonary ventilation, and response to care were monitored throughout the procedure. The physical status of the patient was re-assessed after the procedure. After I obtained informed consent, the scope was passed under direct vision. Throughout the procedure, the patient's blood pressure, pulse, and oxygen saturations were monitored continuously. The pediatric colonoscope was introduced through the anus and advanced to the cecum, identified by appendiceal orifice and ileocecal valve. The colonoscopy was performed without difficulty. The patient tolerated the procedure well. The quality of the bowel preparation was adequate. The ileocecal valve, appendiceal orifice, and rectum were photographed. Scope In: 10:18:45 AM Scope Withdrawal Time 0 hours 10 minutes 20 seconds Scope Out: 10:32:58 AM Total Procedure Duration Time 0 hours 14 minutes 13 seconds Findings: The perianal and digital rectal examinations were normal. Pertinent negatives include normal sphincter tone. A 5 mm polyp was found in the hepatic flexure. The polyp was sessile. The polyp was removed with a cold biopsy forceps. Resection and retrieval were complete. Verification of patient identification for the specimen was done. Estimated blood loss was minimal. The exam was otherwise without abnormality on direct and retroflexion views. Impression: - One 5 mm polyp at the hepatic flexure, removed with a cold biopsy forceps. Resected and retrieved. - The examination was otherwise normal on direct and retroflexion views. Recommendation: - Discharge patient to home. - Resume previous diet. - Continue present medications. - Await pathology results. - Repeat colonoscopy in 5 years for surveillance. Procedure Code(s): --- Professional --- 18419, Colonoscopy, flexible; with biopsy, single or multiple CPT copyright 2021 [employer]. All rights reserved. The codes documented in this report are preliminary and upon president trust company review may be revised to meet current compliance requirements. Alireza Nation DO 07/29/2025 10:41:41 AM This report has been signed electronically. Number of Addenda: 0 Note Initiated On: 07/29/2025 10:06 AM
--- NOTE | 2025-07-29 10:45 | PCM.POST.ANE ---
Anesthesia: Postop Eval I Current Vital Signs Temperature: 97 F Pulse Rate: 64 Blood Pressure: 102/76 Respiratory Rate: 16 Pulse Ox: 99 Oxygen Delivery Method: Room Air Assessment Airway patent: Yes Spontaneous unlabored respirations: Yes Mental status: Asleep nausea: No Vomiting: No Anesthesia Complication: No Fluid Hydration Crystalloid volume administer (ml): 900 Total IV fluid infused: 900 Progress Note Anesthesia document: Postop Eval 1 completed: Yes
--- NOTE | 2025-07-29 13:13 | PCM.POSTANE2 ---
Anesthesia Postop Eval I Sum Postop Eval Completion status Anesthesia document: Postop Eval 1 completed: Yes Anesthesia Postop Eval I Summary Anesthesia Postop Eval I Summary: Anesthesia Postop Eval I: Assessment Summary Airway patent Yes 07/29/25 10:46 [email or web address] Spontaneous unlabored Yes 07/29/25 10:46 [email or web address] respirations Mental status Asleep 07/29/25 10:46 [email or web address] nausea No 07/29/25 10:46 [email or web address] Vomiting No 07/29/25 10:46 [email or web address] Anesthesia Postop Eval I: Fluid Summary Crystalloid volume administer 900 07/29/25 10:46 [email or web address] (ml) Colloids volume administered ( ml) Blood Product volume administered (ml) Total IV fluid infused 900 07/29/25 10:46 [email or web address] Anesthesia Postop Eval I: Summary Notes Anesthesia Complication No 07/29/25 10:46 [email or web address] Anesthesia Complication Comment: Post-operative progress note Anesthesia: Postop Eval II Evaluation Mental status: Awake Pain Level: 0 nausea: No Vomiting: No
== END 2025-07-29 11:20 | disposition home or self-care (01) ==
LOC: EN 09:15 → AC 09:18
PROVIDERS: PCP Family Medicine; Referring Provider Family Medicine; Visit Provider Internal Medicine Gastroenterology
PROC: 0DJD8ZZ Inspection of Lower Intestinal Tract, Via Natural or Artificial Opening Endoscopic (ICD-10-PCS; CPT 45378; principal; 2025-07-29 10:10)
DX: Z12.11 Encounter for screening for malignant neoplasm of colon (principal); I25.10 Atherosclerotic heart disease of native coronary artery without angina pectoris; E78.00 Pure hypercholesterolemia, unspecified; K21.9 Gastro-esophageal reflux disease without esophagitis; Z98.52 Vasectomy status; D12.3 Benign neoplasm of transverse colon
CPT/HCPCS: 45380; 88305; J2405

== ENCOUNTER → 2025-08-04 | Outpatient (CLI) | payer OTHER, SELFPAY | END | disposition home or self-care (01) | LOC: LABSPEC 08-09 08:45 | PROVIDERS: PCP Family Medicine; Visit Provider Family Medicine | DX: R73.01 Impaired fasting glucose (principal) | CPT/HCPCS: 83036 ==